=== PATIENT | male | born 1975 | race Caucasian/White ===

== ENCOUNTER 2018-08-05 15:33 | Emergency (ER) | payer BC ==
[~2018-08-05] VITALS: Ht 182.9 cm; Wt 92.5 kg
[2018-08-05] MEDS ORDERED: LISINOPRIL20 MG PO (15:41)
[2018-08-05 16:48] LABS: ABSOLUTE BASOPHILS 0.1 thou/uL (0.0-0.2); ABSOLUTE EOSINOPHILS 0.3 thou/uL (0.0-0.7); BASOPHILS 0.8 %; EOSINOPHILS 3.5 %; HEMATOCRIT 47.1 % (42.0-52.0); HEMOGLOBIN 16.1 gm/dL (14.0-18.0); LYMPHOCYTES 14.2 %; MCH 32.3 pg (26.0-34.0); MCHC 34.1 g/dL (28.0-37.0); MCV 94.5 fL (80.0-100.0); MPV 7.8 fl. (7.2-11.1); NUCLEATED RBCS 0 /100WBC; PLATELET COUNT* 333 thou/uL (150-400); POLYS 67.5 %; RBC 4.98 mil/uL (4.50-6.00); RDW-CV 13.4 % (10.5-14.5); WBC 7.4 thou/uL (4.0-11.0)
[2018-08-05 16:50] LABS: CALCIUM 9.4 mg/dL (8.5-10.1); CREATININE 0.8 mg/dL (0.6-1.3)
[2018-08-05 16:55] LABS: ALBUMIN 4.2 g/dL (3.4-5.0); TOTAL BILIRUBIN 0.2 mg/dL (<0.1-1.0); TOTAL PROTEIN 8.6 g/dL (6.4-8.2)
[2018-08-05] MEDS ORDERED: BACTRIM DS TAB1 EACH PO (17:50)
[2018-08-05] MEDS ORDERED: KEFLEX500 M1 PO (17:50)
[2018-08-05 17:58] VITALS: BP 178/118
== END 2018-08-05 17:59 | disposition home or self-care (01) ==
LOC: M.ERS 15:33
PROVIDERS: Physician Assistant
DX: L02.416 Cutaneous abscess of left lower limb (principal); L03.116 Cellulitis of left lower limb; R94.5 Abnormal results of liver function studies; Z88.8 Allergy status to other drugs, medicaments and biological substances